=== PATIENT | female | born 1940 | race Caucasian/White ===

== ENCOUNTER 2020-12-20 23:09 | Inpatient (IN) | payer MEDICARE, BC ==
[~2020-12-20] VITALS: Ht 172.7 cm; Wt 82.1 kg
[2020-12-20] MEDS ORDERED: OLME1TAB22 PO (23:36)
[2020-12-20] MEDS ORDERED: ROSU10TA2 PO (23:36)
[2020-12-20] MEDS ORDERED: METF500T17 PO (23:36)
[2020-12-20] MEDS ORDERED: HYDR-3248 PO (23:36)
[2020-12-20] MEDS ORDERED: SOLI10TA2 PO (23:36)
[2020-12-20] MEDS ORDERED: INSULIN (23:36)
[2020-12-20] MEDS ORDERED: MAGN250T8 PO (23:36)
[2020-12-20] MEDS ORDERED: CALC600T23 PO (23:36)
[2020-12-20] MEDS ORDERED: FESO8TAB PO (23:36)
[2020-12-20] MEDS ORDERED: LEVO112T4 PO (23:36)
[2020-12-20] MEDS ORDERED: CYAN100028 PO (23:36)
[2020-12-20] MEDS ORDERED: APIX5TAB PO (23:36)
[2020-12-20] MEDS ORDERED: AMLO-150 PO (23:36)
[2020-12-20] MEDS ORDERED: EMPA10TA PO (23:36)
--- NOTE | 2020-12-20 23:45 | NUR ---
LAB AT BEDSIDE, PT PLACED ON [place], CLEANSED PER POLICY
[2020-12-20 23:47] LABS: MEAN CORPUSCULAR HEMOGLOBIN 28.5 pg (27.0-34.8); MEAN CORPUSCULAR HGB CONC 32.5 g/dL (32.4-35.8); MEAN PLATELET VOLUME 9.6 fL (7.4-10.4); PLATELET COUNT 256 x10^3/uL (130-400); RED BLOOD COUNT 2.81 x10^6/uL (3.82-5.3); RED CELL DISTRIBUTION WIDTH 13.9 % (9.6-15.2)
[2020-12-20 23:56] LABS: ALANINE AMINOTRANSFERASE 42 U/L (12-78); ALBUMIN 2.4 g/dL (3.4-5.0); ANION GAP 13 mmol/L (5-15); CALCIUM 8.5 mg/dL (8.5-10.1); CHLORIDE 109 mmol/L (98-107); CREATININE 0.97 mg/dL (0.55-1.02)
[2020-12-21] VITALS (7 sets, daily range): BP systolic 91–107; BP diastolic 56–70
[2020-12-21 00:01] LABS: ALKALINE PHOSPHATASE 109 U/L (45-117); BILIRUBIN,TOTAL 0.3 mg/dL (0.2-1.0); TOTAL PROTEIN 5.4 g/dL (6.4-8.2); TROPONIN I 0.021 ng/mL (0.000-0.045)
--- NOTE | 2020-12-21 00:10 | NUR ---
PT REQ PAIN MEDS AND PILLOW, PT REPOSITIONED ERP UPDATED AWAITING ORDERS
[2020-12-21 00:19] LABS: MD YES
--- NOTE | 2020-12-21 00:21 | NUR ---
PER BLOOD BANK PT HAS ANTIBODY THAT REQUIRES ADDITIONAL SCREENING BLOOD 1-2HRS OUT AT THIS TIME. ERP UPDATED
[2020-12-21 00:22] LABS: ANISOCYTOSIS 1+; BAND#(MANUAL) 1.72 x10^3/uL; BANDS%(MANUAL) 10 % (0-7); BASOS#(MANUAL) 0.17 x10^3/uL (0-0.1); BASOS% (MANUAL) 1 % (0-1); EOS#(MANUAL) 0.17 x10^3/uL (0.0-0.4); EOS% (MANUAL) 1 % (1-7); LYMPH#(MANUAL) 2.58 x10^3/uL (1-3.4); LYMPHS% (MANUAL) 15 % (22-44); METAMYELOCYTES# (MANUAL) 0.69 x10^3/uL (0-0); METAMYELOCYTES% (MANUAL) 4 % (0-1); MONOS#(MANUAL) 0.34 x10^3/uL (0.3-2.7); MONOS% (MANUAL) 2 % (2-9); MYELOCYTES# (MANUAL) 0.52 x10^3/uL (0-0); MYELOCYTES% (MANUAL) 3 % (0-0); OVALOCYTES 1+; POLYCHROMASIA 1+; SEG#(MANUAL) 11.01 x10^3/uL (1.8-6.8); SEGS% (MANUAL) 64 % (42-75)
[2020-12-21 00:23] LABS: <PLATELET ESTIMATE> ADEQUATE; ECHINOCYTES 1+; LARGE PLATELETS 1+
[2020-12-21] MEDS ORDERED: ONDANSETRON 2MG/ML, 2ML ONE (00:25)
--- NOTE | 2020-12-21 00:25 | NUR ---
PT REQ WATER AND REPOSITIONING. PT REPOSITIONED AND GIVEN ADDITIONAL PILLOW
[2020-12-21] MEDS ORDERED: MORPHINE SULFATE 4 MG/ML, 1ML ONE (00:26)
--- NOTE | 2020-12-21 00:28 | NUR ---
PT REQ MORE BLANKETS AND WATER, PT GIVEN SIPS PER DR SCHMIDT.
[2020-12-21] MEDS ORDERED: MORPHINE SULFATE 4 MG/ML, 1ML IVPush PRN (00:30)
[2020-12-21] MEDS ORDERED: ONDANSETRON 2MG/ML, 2ML IVPush ONE (00:30)
--- NOTE | 2020-12-21 00:35 | NUR ---
PT REPOSITIONED AND MEDICATED FOR PAIN
--- NOTE | 2020-12-21 01:03 | NUR ---
received report from SHAHRZAD Navarro
--- NOTE | 2020-12-21 01:06 | NUR ---
REPORT TO JOSUE MARKHAMCENTRIFUGAL EXTRACTOR OPERATOR OF CARE AT THIS TIME
--- NOTE | 2020-12-21 01:40 | NUR ---
bed assigned. report to given to SHAHRZAD Shen.
[2020-12-21] MEDS ORDERED: ONDANSETRON 2MG/ML, 2ML IVPush PRN (03:00)
[2020-12-21] MEDS ORDERED: ACETAMINOPHEN 325 MG TABLET PO PRN (03:00)
[2020-12-21] MEDS ORDERED: PANTOPRAZOLE 40 MG IV IVPush SCH (03:00)
[2020-12-21 03:51] LABS: FREE T4 (FREE THYROXINE) 0.92 ng/dL (0.76-1.46)
[2020-12-21] MEDS: INSULIN LISPRO 100 UNITS/ML, PEN SQ-INSULIN SCH ×5 (04:05→20:13)
[2020-12-21 10:55] LABS: MEAN CORPUSCULAR HEMOGLOBIN 29.2 pg (27.0-34.8); MEAN CORPUSCULAR HGB CONC 33.2 g/dL (32.4-35.8); MEAN PLATELET VOLUME 9.2 fL (7.4-10.4); PLATELET COUNT 279 x10^3/uL (130-400); RED CELL DISTRIBUTION WIDTH 14.4 % (9.6-15.2)
[2020-12-21 12:20] LABS: MD YES
[2020-12-21 12:22] LABS: <PLATELET ESTIMATE> ADEQUATE; ANISOCYTOSIS 1+; BAND#(MANUAL) 1.22 x10^3/uL; BANDS%(MANUAL) 7 % (0-7); LYMPH#(MANUAL) 3.48 x10^3/uL (1-3.4); LYMPHS% (MANUAL) 20 % (22-44); METAMYELOCYTES# (MANUAL) 0.35 x10^3/uL (0-0); METAMYELOCYTES% (MANUAL) 2 % (0-1); MONOS#(MANUAL) 0.52 x10^3/uL (0.3-2.7); MONOS% (MANUAL) 3 % (2-9); MYELOCYTES% (MANUAL) 4 % (0-0); OVALOCYTES 1+; POLYCHROMASIA 1+; REACTIVE LYMPHS # (MANUAL) 0.17 x10^3/uL (0-0); REACTIVE LYMPHS % (MANUAL) 1 % (0-0); SEG#(MANUAL) 10.96 x10^3/uL (1.8-6.8); SEGS% (MANUAL) 63 % (42-75)
[2020-12-21 12:23] LABS: LARGE PLATELETS 1+
[2020-12-21] MEDS ORDERED: DIPHENHYDRAMINE 12.5MG/5ML, 10ML UDC PO PRN (18:30)
[2020-12-21] MEDS: PANTOPRAZOLE 40 MG IV IVPush SCH (20:13)
[2020-12-22 03:55] VITALS: BP 112/53
[2020-12-22 05:58] LABS: MEAN CORPUSCULAR HEMOGLOBIN 29.1 pg (27.0-34.8); MEAN CORPUSCULAR HGB CONC 33.1 g/dL (32.4-35.8); MEAN PLATELET VOLUME 9.1 fL (7.4-10.4); PLATELET COUNT 274 x10^3/uL (130-400); RED BLOOD COUNT 2.79 x10^6/uL (3.82-5.3); RED CELL DISTRIBUTION WIDTH 14.4 % (9.6-15.2)
[2020-12-22 06:03] LABS: ANION GAP 6 mmol/L (5-15); CALCIUM 8.9 mg/dL (8.5-10.1); CHLORIDE 111 mmol/L (98-107); CREATININE 0.87 mg/dL (0.55-1.02)
[2020-12-22 06:32] LABS: MD YES
[2020-12-22 06:33] LABS: BAND#(MANUAL) 0.74 x10^3/uL; BANDS%(MANUAL) 5 % (0-7); EOS#(MANUAL) 0.29 x10^3/uL (0.0-0.4); EOS% (MANUAL) 2 % (1-7); LYMPH#(MANUAL) 1.62 x10^3/uL (1-3.4); LYMPHS% (MANUAL) 11 % (22-44); METAMYELOCYTES# (MANUAL) 0.44 x10^3/uL (0-0); METAMYELOCYTES% (MANUAL) 3 % (0-1); MONOS#(MANUAL) 0.59 x10^3/uL (0.3-2.7); MONOS% (MANUAL) 4 % (2-9); MYELOCYTES# (MANUAL) 0.15 x10^3/uL (0-0); MYELOCYTES% (MANUAL) 1 % (0-0); SEG#(MANUAL) 10.88 x10^3/uL (1.8-6.8); SEGS% (MANUAL) 74 % (42-75)
[2020-12-22 06:34] LABS: ANISOCYTOSIS 1+; OVALOCYTES 1+; POLYCHROMASIA 1+
[2020-12-22 06:35] LABS: <PLATELET ESTIMATE> ADEQUATE; <PLT MORPHOLOGY> NORMAL PLT MORPH
[2020-12-22 06:44] VITALS: BP 106/69
[2020-12-22] MEDS: PANTOPRAZOLE 40 MG IV IVPush SCH (08:27)
[2020-12-22] MEDS: INSULIN LISPRO 100 UNITS/ML, PEN SQ-INSULIN SCH ×4 (08:30→20:08)
[2020-12-22 09:30] VITALS: BP 106/69
[2020-12-22] MEDS ORDERED: CHLORHEXIDINE 15 ML UDC ONE (09:39)
[2020-12-22] MEDS ORDERED: FENTANYL PF 100 MCG/2ML ONE (10:14)
[2020-12-22] MEDS ORDERED: OXYcodone 5 MG/5 ML ORAL.SOL UDC ONE (10:14)
[2020-12-22] MEDS ORDERED: ONDANSETRON 2MG/ML, 2ML IVPush PRN (10:30)
[2020-12-22] MEDS ORDERED: FENTANYL PF 100 MCG/2ML IV PRN (10:30)
[2020-12-22] MEDS ORDERED: OXYcodone 5 MG/5 ML ORAL.SOL UDC PO PRN (10:30)
[2020-12-22 12:21] VITALS: BP 106/65
[2020-12-22] MEDS: PANTOPRAZOLE 40MG TABLET PO SCH (17:25)
[2020-12-22 20:14] VITALS: BP 110/67
[2020-12-23] VITALS (8 sets, daily range): BP systolic 100–135; BP diastolic 40–77
[2020-12-23] MEDS: PANTOPRAZOLE 40MG TABLET PO SCH ×2 (05:06→16:06)
[2020-12-23 05:35] LABS: BASOPHILS % (AUTO) 0 % (0-1); EOSINOPHILS % (AUTO) 2 % (1-7); LYMPHOCYTES % (AUTO) 21 % (22-44); MEAN CORPUSCULAR HEMOGLOBIN 29.8 pg (27.0-34.8); MEAN PLATELET VOLUME 9.2 fL (7.4-10.4); MONOCYTES % (AUTO) 9 % (2-9); NEUTROPHILS % (AUTO) 69 % (42-75); PLATELET COUNT 261 x10^3/uL (130-400); RED CELL DISTRIBUTION WIDTH 14.5 % (9.6-15.2)
[2020-12-23 06:21] LABS: MD SCAN
[2020-12-23] MEDS: INSULIN LISPRO 100 UNITS/ML, PEN SQ-INSULIN SCH ×4 (08:23→20:31)
[2020-12-23] MEDS: (Empagliflozin (Jardiance) 10 MG) HOMEMEDPO SCH (13:00)
[2020-12-23] MEDS ORDERED: LIDOCAINE 1%, 10ML ONE (13:44)
[2020-12-23] MEDS ORDERED: NALOXONE 1 MG/ML, 2ML ONE (14:02)
[2020-12-23] MEDS ORDERED: FENTANYL PF 100 MCG/2ML ONE (14:02)
[2020-12-23 16:35] LABS: MICROSCOPIC NOT IND
[2020-12-24 02:00] VITALS: BP 122/74
[2020-12-24] MEDS: PANTOPRAZOLE 40MG TABLET PO SCH (05:48)
[2020-12-24 05:50] LABS: BASOPHILS % (AUTO) 0 % (0-1); EOSINOPHILS % (AUTO) 1 % (1-7); LYMPHOCYTES % (AUTO) 19 % (22-44); MEAN CORPUSCULAR HEMOGLOBIN 29.7 pg (27.0-34.8); MEAN CORPUSCULAR HGB CONC 33.7 g/dL (32.4-35.8); MEAN PLATELET VOLUME 9.5 fL (7.4-10.4); MONOCYTES % (AUTO) 10 % (2-9); NEUTROPHILS % (AUTO) 70 % (42-75); PLATELET COUNT 233 x10^3/uL (130-400); RED BLOOD COUNT 3.08 x10^6/uL (3.82-5.3); RED CELL DISTRIBUTION WIDTH 14.4 % (9.6-15.2)
[2020-12-24 05:55] LABS: ANION GAP 7 mmol/L (5-15); CALCIUM 8.7 mg/dL (8.5-10.1); CHLORIDE 104 mmol/L (98-107); CREATININE 0.77 mg/dL (0.55-1.02)
[2020-12-24 05:58] LABS: MD NO
[2020-12-24] MEDS ORDERED: LEVOTHYROXINE 112 MCG TABLET PO SCH (06:00)
[2020-12-24] MEDS: INSULIN LISPRO 100 UNITS/ML, PEN SQ-INSULIN SCH ×2 (08:19→11:33)
[2020-12-24] MEDS: (Empagliflozin (Jardiance) 10 MG) HOMEMEDPO SCH (08:21)
[2020-12-24 08:52] VITALS: BP 108/64
[2020-12-24] MEDS ORDERED: MAGNESIUM HYDROXIDE 8%, 30ML UDC ONE (10:20)
[2020-12-24] MEDS ORDERED: MAGNESIUM HYDROXIDE 8%, 30ML UDC PO PRN (10:30)
[2020-12-24] MEDS ORDERED: ACET325T26 PO (10:36)
[2020-12-24] MEDS ORDERED: PANT40TA6 PO ×2 (10:36→10:38)
== END 2020-12-24 13:09 | DRG 368 ==
LOC: ED 12-21 00:52 → EDIP 12-21 01:17 → 4WST 12-21 01:37
PROVIDERS: ADMIT Family Medicine; ATTEND Internal Medicine
PROC: 30233N1 Transfusion of Nonautologous Red Blood Cells into Peripheral Vein, Percutaneous Approach (ICD-10-PCS; 2020-12-21)
PROC: 0DB68ZX Excision of Stomach, Via Natural or Artificial Opening Endoscopic, Diagnostic (ICD-10-PCS; 2020-12-22)
PROC: 06H03DZ Insertion of Intraluminal Device into Inferior Vena Cava, Percutaneous Approach (ICD-10-PCS; principal; 2020-12-23)
DX: K20.91 Esophagitis, unspecified with bleeding (principal); K26.4 Chronic or unspecified duodenal ulcer with hemorrhage; R57.8 Other shock; I26.99 Other pulmonary embolism without acute cor pulmonale; K25.4 Chronic or unspecified gastric ulcer with hemorrhage; D62 Acute posthemorrhagic anemia; E44.0 Moderate protein-calorie malnutrition; D68.69 Other thrombophilia; Z20.822 Contact with and (suspected) exposure to COVID-19; Z66 Do not resuscitate; I10 Essential (primary) hypertension; E03.9 Hypothyroidism, unspecified; Z96.659 Presence of unspecified artificial knee joint; D72.829 Elevated white blood cell count, unspecified; M19.90 Unspecified osteoarthritis, unspecified site; G90.8 Other disorders of autonomic nervous system; K22.70 Barrett's esophagus without dysplasia; E78.5 Hyperlipidemia, unspecified; Z90.710 Acquired absence of both cervix and uterus; Z86.711 Personal history of pulmonary embolism; Z79.01 Long term (current) use of anticoagulants; Z80.0 Family history of malignant neoplasm of digestive organs; Z79.4 Long term (current) use of insulin; Z87.19 Personal history of other diseases of the digestive system; Z79.899 Other long term (current) drug therapy; Z68.27 Body mass index [BMI] 27.0-27.9, adult
CPT/HCPCS: 36415; 36430; 37191; 71045; 80048; 80053; 81003; 82533; 82728; 82962; 83036; 83540; 83550; 83605; 83735; 83880; 84100; 84145; 84439; 84443; 84466; 84484; 85014; 85018; 85025; 86850; 86870; 86900; 86902; 86922; 86923; 87040; 87635; 88305; 93005; 93306; 93970; 99285; C1880; G0378; J2405; J3010; C9113; J1815; J2270; J2310; P9016